=== PATIENT | female | born 1980 | race Caucasian/White ===

== ENCOUNTER → 2017-03-18 | Outpatient (CLI) | payer OTHER ==
--- NOTE | 2017-03-18 14:29 | US ---
EXAMINATION TYPE: US venous Doppler duplex LE DATE OF EXAM: 03/18/2017 2:09 PM COMPARISON: US 2014 CLINICAL HISTORY: M79.669 Pain in lower leg. Left medial lower leg pain. SIDE PERFORMED: Bilateral TECHNIQUE: The lower extremity deep venous system is examined utilizing real time linear array sonog shannan with graded compression, Doppler sonography and color-flow sonography. VESSELS IMAGED: Common Femoral Vein Deep Femoral Vein Greater Saphenous Vein * Femoral Vein Popliteal Vein Small Saphenous Vein * Proximal Calf Veins (* superficial vessels) Right Leg: Negative for DVT Left Leg: Negative for DVT Tech findings called to Perri at Dr Rom Olivier's Office at exam's end. JJ IMPRESSION: 1. No evidence of DVT bilaterally.
== END ==
LOC: RADUSWWP 13:37
PROVIDERS: ATTEND Family Medicine
DX: M79.669 Pain in unspecified lower leg (principal)
CPT/HCPCS: 93970

== ENCOUNTER 2018-07-16 17:43 | Emergency (ER) | payer OTHER ==
[2018-07-16 17:54] VITALS: BP 123/81; PULSE 84; RESP 16; TEMP 97.9
[2018-07-16] MEDS ORDERED: KETOROLAC 60 MG/2 ML VIAL IM STA (18:24)
--- NOTE | 2018-07-16 18:35 | ED ---
General Adult HPI - General Chief complaint: Extremity Problem,Nontraumatic Stated complaint: Shoulder pain Time Seen by Provider: 07/16/18 18:17 Source: patient, RN notes reviewed Mode of arrival: wheelchair Limitations: no limitations - History of Present Illness Initial comments: Patient is a pleasant 38-year-old female presenting to the emergency department with complaints of left shoulder discomfort. Symptoms started a couple of days ago. Patient has discomfort of her left shoulder that does extend somewhat down her arm. Discomfort does increase with movement of the left shoulder. Patient denies any chest discomfort. No difficulty in breathing. No neck pain no back pain. No history of chronic shoulder problems. Patient states she has been under increased stress recently and does relate her discomfort to her stress. Patient did go to the doctor's office prior to arrival she was advised to come to the emergency department. No weakness. No loss of sensation. - Related Data Home Medications Medication Instructions Recorded Confirmed Ranitidine HCl [Zantac] 150 mg PO BID 04/14/16 06/11/16 Spironolactone [Aldactone] 25 mg PO BID 04/14/16 06/11/16 Previous Rx's Medication Instructions Recorded HYDROcodone/APAP 5-325MG [[place] 1 - 2 tab PO Q6HR PRN #20 tab 06/11/16 5-325] Allergies Allergy/AdvReac Type Severity Reaction Status Date / Time No Known Allergies Allergy Verified 07/16/18 17:54 Review of Systems ROS Statement: Those systems with pertinent positive or pertinent negative responses have been documented in the HPI. ROS Other: All systems not noted in ROS Statement are negative. Constitutional: Denies: fever Eyes: Denies: eye pain ENT: Denies: ear pain Respiratory: Denies: cough, dyspnea Cardiovascular: Denies: chest pain Endocrine: Denies: fatigue Gastrointestinal: Denies: abdominal pain Genitourinary: Denies: dysuria Musculoskeletal: Reports: arthralgia. Denies: back pain Skin: Denies: rash Neurological: Denies: weakness Past Medical History Past Medical History: GERD/Reflux, Pneumonia Additional Past Medical History / Comment(s): 04/22/16: THYROID BX. Sleep apnea (NO CPAP). HAS SWELLING FROM BRA LINE UP TO NECK. History of Any Multi-Drug Resistant Organisms: None Reported Past Surgical History: Section, Hernia Repair Additional Past Surgical History / Comment(s): BILATERAL Carpal tunnel. Past Anesthesia/Blood Transfusion Reactions: No Reported Reaction Past Psychological History: No Psychological Hx Reported Smoking Status: Former smoker Past Alcohol Use History: None Reported Past Drug Use History: None Reported - Past Family History Sister(s) Family Medical History: Deep Vein Thrombosis (DVT) Additional Family Medical History / Comment(s): PROTEIN C DEFICIENCY, HIGH RISK FOR THROMBOSIS. General Exam Limitations: no limitations General appearance: alert, in no apparent distress Head exam: Present: atraumatic Eye exam: Present: normal appearance, PERRL ENT exam: Present: normal oropharynx Neck exam: Present: normal inspection. Absent: tenderness, meningismus Respiratory exam: Present: normal lung sounds bilaterally. Absent: chest wall tenderness Cardiovascular Exam: Present: regular rate, normal rhythm, normal heart sounds Expanded Peripheral pulses: 2+: Radial (R), Radial (L), Posterior Tibialis (R), Posterior Tibialis (L) GI/Abdominal exam: Present: soft. Absent: tenderness Extremities exam: Present: full ROM (With pain on active and passive range of motion), tenderness (Tenderness left shoulder on the upper lateral aspect.) Back exam: Present: normal inspection Neurological exam: Present: alert. Absent: motor sensory deficit Expanded Motor strength exam: LUE: 5 Psychiatric exam: Present: normal affect, normal mood Skin exam: Present: normal color Course Vital Signs 07/16/18 17:51 Temperature 97.9 F Pulse Rate 84 Respiratory 16 Rate Blood Pressure 123/81 O2 Sat by Pulse 98 Oximetry EKG Findings - EKG Comments: EKG Findings:: Normal sinus rhythm 87. UT 160. QRS 100. QT 380. QTC 457. Normal axis. Normal QRS. No acute ST change. Medical Decision Making - Medical Decision Making Patient and the left is recommended to have further evaluation including blood work and chest x-ray. Patient is aware that cardiac disease cannot be completely ruled out with an EKG alone and blood work and x-ray may be helpful. Patient does not believe she has any cardiac disease and believes it is just related to her shoulder. Patient refuses further cardiac evaluation. Patient is felt to have low risk for cardiac disease based on symptoms. Patient is also advised to have x-ray of her left shoulder done. Patient also refuses this stating she did not injure her shoulder and she knows it is not broken. Patient feels this would just be a waste of resources. Patient would like an injection for her shoulder discomfort. Disposition Clinical Impression: Shoulder pain Disposition: HOME SELF-CARE Condition: Stable Instructions: Shoulder Pain (ED) Additional Instructions: Please follow-up with primary care physician in the next day or 2 for recheck. Return for increased pain, swelling, redness, fever, chest pain, difficult to breathing, worsening symptoms, or any other concerns. Is patient prescribed a controlled substance at d/c from ED?: No Referrals: Jayy Olivier MD [Primary Care Provider] - 1-2 days Time of Disposition: 18:35
== END 2018-07-16 18:53 | disposition home or self-care (01) ==
LOC: EC 17:43
DX: M25.512 Pain in left shoulder (principal); M79.602 Pain in left arm; K21.9 Gastro-esophageal reflux disease without esophagitis; Z87.891 Personal history of nicotine dependence; Z79.899 Other long term (current) drug therapy
CPT/HCPCS: 93005; 99283; 96372; J1885

== ENCOUNTER → 2021-01-10 | Outpatient (CLI) | payer BC, OTHER ==
--- NOTE | 2021-01-10 13:58 | US ---
EXAMINATION TYPE: US transvaginal DATE OF EXAM: 01/10/2021 COMPARISON: Prior ultrasound November 23, 2009 CLINICAL HISTORY: N92.1 EXCESSIVE AND FREQ MENSTRATION WITH IRREG MENSES. Abnormal bleeding. Exam jaquez itations due to body habitus. TECHNIQUE: Transvaginal (TV). EXAM MEASUREMENTS: Uterus: 8.4 x 4.4 x 3.9 cm Endometrial Stripe: .4 cm 1. Uterus: Anteverted Nabothian cysts seen. 2. Endometrium: wnl 3. Right Ovary: Obscured by overlying bowel gas 4. Left Ovary: Obscured by overlying bowel gas 5. Bilateral Adnexa: wnl 6. Posterior cul-de-sac: wnl Uterine size within normal limits. Endometrial stripe is not thickened. No suspicious focal uterine m asses. Trace free fluid in Pelvis. Neither ovary clearly seen. No suspicious adnexal masses. IMPRESSION: Slightly suboptimal study, Source of patient's symptoms not identified.
== END | disposition home or self-care (01) ==
LOC: RADUSWWP 12:32
PROVIDERS: ATTEND Family Medicine
DX: N92.1 Excessive and frequent menstruation with irregular cycle (principal)
CPT/HCPCS: 76830

== ENCOUNTER → 2021-12-25 | Outpatient (CLI) | payer BC, OTHER | END | disposition home or self-care (01) | LOC: RADCTMAIN 10:13 | PROVIDERS: ATTEND Family Medicine | DX: Z53.9 Procedure and treatment not carried out, unspecified reason (principal) ==